=== PATIENT | male | born 1965 | race Hispanic/Latino ===

== ENCOUNTER 2024-01-29 10:13 | Inpatient (IN) | payer BC, OTHER ==
[2024-01-28 13:11] LABS: BASOPHILS % 0.3 % (0.0-1.0); EOSINOPHILS # (AUTO) 0.1 (0.0-0.4); EOSINOPHILS % 2.2 % (0.0-6.0); HEMATOCRIT 43.2 % (38.2-49.6); HEMOGLOBIN 14.2 g/dL (14.0-18.0); LYMPHOCYTES # (AUTO) 1.9 (1.0-3.2); LYMPHOCYTES % 31.7 % (18.0-39.1); MEAN CORPUSCULAR HEMOGLOBIN 32.9 pg (28-32); MEAN CORPUSCULAR HGB CONC 32.9 g/dL (31-35); MONOCYTES # (AUTO) 0.6 (0.2-0.8); MONOCYTES % 9.3 % (4.4-11.3); NEUTROPHILS # (AUTO) 3.3 (2.1-6.9); NEUTROPHILS % 56.3 % (38.7-80.0); PLATELET COUNT 209 x10e3/uL (140-360); RED BLOOD COUNT 4.32 x10e6/uL (4.3-5.7); RED CELL DISTRIBUTION WIDTH 12.3 % (11.7-14.4); WHITE BLOOD COUNT 5.89 x10e3/uL (4.8-10.8)
[2024-01-28 13:28] LABS: ANION GAP 13.1 mmol/L (8-16); CALCIUM 9.9 mg/dL (8.4-10.2); CREATININE, SERUM 0.74 mg/dL (0.72-1.25); POTASSIUM 4.1 mmol/L (3.5-5.1)
[~2024-01-29] VITALS: Ht 170.2 cm; Wt 94.3 kg
[~2024-01-29 10:13] MED LIST: ACETAMINOPHEN 1000 MG/100 ML IV ONE; ALIVE PO; DEXAMETHASONE SOD PHOS INJ 4 MG/ML SDV ONE; FLOMAX0.4 MG PO; GLIPIZIDE5 MG PO; LIDOCAINE HCL 2% LOCAL INJ 5 ML SDV VIAL INJ ONE; METFORMIN HCL500 MG PO; OMEGA; OMEGA 3 1,0001 EACH PO; ONDANSETRON HCL INJ 2MG/ML 2ML 2 MG/ML VIAL ONE; PROPOFOL IV EMULSION 10 MG/ML 20 ML VIAL ONE; ROSUVASTATIN CAL5 MG PO; SEVOFLURANE INHAL SOLN 250 ML PEN BTL ONE; SUCCINYLCHOLINE CHLORIDE 20 MG/ML 10ML VIAL ONE; SUCRALFATE1 GM PO
[2024-01-29] MEDS ORDERED: CALCIUM CARBON500 MG PO (10:26)
[2024-01-29] MEDS: CEFTRIAXONE 1 GM VIAL ONE (10:40)
[2024-01-29] MEDS: SODIUM CHLORIDE 0.9% 1000ML 1,000 ML ONE (10:40)
[2024-01-29] MEDS: GENTAMICIN 80MG/NS 100 ML 200 ML IV ONE (10:41)
[2024-01-29] MEDS ORDERED: IOPAMIDOL 610MG/1ML 300 MG/ML VIAL IV ONE (11:44)
[2024-01-29] MEDS: FENTANYL CITRATE/PF 100MCG/2 ML INJ ONE (13:40)
[2024-01-29] MEDS: ONDANSETRON HCL INJ 2MG/ML 2ML 2 MG/ML VIAL ONE (14:01)
[2024-01-29] MEDS ORDERED: ONDANSETRON HCL INJ 2MG/ML 2ML 2 MG/ML VIAL IV PRN (14:15)
[2024-01-29] MEDS ORDERED: DIPHENHYDRAMINE HCL 25 MG CAP PO PRN (14:15)
[2024-01-29] MEDS: PHENAZOPYRIDINE HCL 100 MG TAB PO PRN (14:17)
[2024-01-29] MEDS: ACETAMINOPHEN/CODEINE 300MG - 30MG TAB PO PRN (14:17)
[2024-01-29] MEDS: ACETAMINOPHEN/CODEINE 300MG - 30MG TAB ONE (14:17)
[2024-01-29 14:31] LABS: BASOPHILS % 0.2 % (0.0-1.0); EOSINOPHILS # (AUTO) 0.1 (0.0-0.4); EOSINOPHILS % 0.5 % (0.0-6.0); HEMATOCRIT 37.8 % (38.2-49.6); HEMOGLOBIN 12.2 g/dL (14.0-18.0); LYMPHOCYTES # (AUTO) 1.3 (1.0-3.2); LYMPHOCYTES % 13.6 % (18.0-39.1); MEAN CORPUSCULAR HEMOGLOBIN 32.8 pg (28-32); MEAN CORPUSCULAR HGB CONC 32.3 g/dL (31-35); MEAN CORPUSCULAR VOLUME 101.6 fL (81-99); MONOCYTES # (AUTO) 0.2 (0.2-0.8); MONOCYTES % 2.5 % (4.4-11.3); NEUTROPHILS # (AUTO) 7.8 (2.1-6.9); PLATELET COUNT 166 x10e3/uL (140-360); RED BLOOD COUNT 3.72 x10e6/uL (4.3-5.7); RED CELL DISTRIBUTION WIDTH 12.6 % (11.7-14.4); WHITE BLOOD COUNT 9.43 x10e3/uL (4.8-10.8)
[2024-01-29 14:40] VITALS: BP 132/86; PULSE 75; RESP 17; TEMP 97.6; O2SAT 98
[2024-01-29 15:12] LABS: ANION GAP 12.3 mmol/L (8-16); CALCIUM 7.5 mg/dL (8.4-10.2); CREATININE, SERUM 0.62 mg/dL (0.72-1.25); POTASSIUM 4.3 mmol/L (3.5-5.1)
[2024-01-29] MEDS: SODIUM CHLORIDE 0.9% 1000ML 1,000 ML IV SCH (15:35)
[2024-01-29 15:46] VITALS: BP 132/86; PULSE 75; RESP 17; TEMP 97.6; O2SAT 98
[2024-01-29] MEDS ORDERED: ACETAMINOPHEN 1000 MG/100 ML IV PRN (16:00)
[2024-01-29] MEDS ORDERED: FENTANYL CITRATE/PF 100MCG/2 ML INJ ONE (18:16)
[2024-01-29] MEDS ORDERED: MIDAZOLAM HCL 2 MG/2 ML VIAL ONE (18:16)
[2024-01-29] MEDS: SENNA-S TABLET PO SCH (19:09)
[2024-01-29 20:00] VITALS: BP 126/89; PULSE 72; RESP 18; TEMP 97.9; O2SAT 98
[2024-01-29 20:14] VITALS: BP 126/89; PULSE 72; RESP 18; TEMP 97.9; O2SAT 98
[2024-01-30] VITALS (8 sets, daily range): BP systolic 118–133; BP diastolic 80–92; PULSE 64–75; RESP 16–18; TEMP 97.7–98.2; O2SAT 97–100
[2024-01-30 05:50] LABS: BASOPHILS % 0.1 % (0.0-1.0); EOSINOPHILS % 0.3 % (0.0-6.0); HEMATOCRIT 39.1 % (38.2-49.6); HEMOGLOBIN 12.7 g/dL (14.0-18.0); LYMPHOCYTES # (AUTO) 1.6 (1.0-3.2); LYMPHOCYTES % 13.7 % (18.0-39.1); MEAN CORPUSCULAR HEMOGLOBIN 33.1 pg (28-32); MEAN CORPUSCULAR HGB CONC 32.5 g/dL (31-35); MEAN CORPUSCULAR VOLUME 101.8 fL (81-99); MONOCYTES # (AUTO) 0.8 (0.2-0.8); MONOCYTES % 7.2 % (4.4-11.3); NEUTROPHILS # (AUTO) 9.1 (2.1-6.9); NEUTROPHILS % 78.4 % (38.7-80.0); PLATELET COUNT 184 x10e3/uL (140-360); RED BLOOD COUNT 3.84 x10e6/uL (4.3-5.7); RED CELL DISTRIBUTION WIDTH 12.5 % (11.7-14.4); WHITE BLOOD COUNT 11.65 x10e3/uL (4.8-10.8)
[2024-01-30 06:13] LABS: ANION GAP 12.8 mmol/L (8-16); CALCIUM 8.7 mg/dL (8.4-10.2); CREATININE, SERUM 0.65 mg/dL (0.72-1.25); POTASSIUM 3.8 mmol/L (3.5-5.1)
[2024-01-30] MEDS ORDERED: ACETAMINOPHEN 325 MG TAB PO PRN (08:30)
[2024-01-30] MEDS ORDERED: DEXTROSE 50% SYRINGE 50 ML IV PRN (08:30)
[2024-01-30] MEDS ORDERED: BISACODYL 10 MG SUPP PR PRN (08:30)
[2024-01-30] MEDS: MAGNESIUM SULFATE 2GM/50ML 50 ML IV ONE (08:57)
[2024-01-30] MEDS: SENNOSIDES 8.6 MG TAB PO SCH (08:57)
[2024-01-30] MEDS: DOCUSATE SODIUM 100 MG CAP PO SCH (08:57)
[2024-01-30] MEDS: INSULIN LISPRO 100 UNIT/1 ML 3ML VIAL SQ SCH (11:30)
[2024-01-31] VITALS (7 sets, daily range): BP systolic 124–144; BP diastolic 77–99; PULSE 16–89; RESP 16–18; TEMP 97.9–98.2; O2SAT 96–99
[2024-01-31 05:43] LABS: BASOPHILS % 0.4 % (0.0-1.0); EOSINOPHILS # (AUTO) 0.1 (0.0-0.4); EOSINOPHILS % 1.4 % (0.0-6.0); HEMATOCRIT 38.2 % (38.2-49.6); HEMOGLOBIN 12.5 g/dL (14.0-18.0); LYMPHOCYTES # (AUTO) 1.9 (1.0-3.2); LYMPHOCYTES % 24.6 % (18.0-39.1); MEAN CORPUSCULAR HEMOGLOBIN 33.1 pg (28-32); MEAN CORPUSCULAR HGB CONC 32.7 g/dL (31-35); MEAN CORPUSCULAR VOLUME 101.1 fL (81-99); MONOCYTES # (AUTO) 0.6 (0.2-0.8); MONOCYTES % 8.2 % (4.4-11.3); NEUTROPHILS % 65.3 % (38.7-80.0); PLATELET COUNT 170 x10e3/uL (140-360); RED BLOOD COUNT 3.78 x10e6/uL (4.3-5.7); RED CELL DISTRIBUTION WIDTH 12.8 % (11.7-14.4); WHITE BLOOD COUNT 7.72 x10e3/uL (4.8-10.8)
[2024-01-31 06:04] LABS: ANION GAP 12.9 mmol/L (8-16); CALCIUM 8.8 mg/dL (8.4-10.2); CREATININE, SERUM 0.65 mg/dL (0.72-1.25); POTASSIUM 3.9 mmol/L (3.5-5.1)
[2024-01-31 06:44] LABS: MAGNESIUM 1.8 MG/DL (1.3-2.1)
[2024-01-31] MEDS: GLIPIZIDE 5 MG TAB PO SCH (16:54)
[2024-01-31] MEDS: METFORMIN HCL 500 MG TAB PO SCH (16:54)
[2024-01-31 17:11] LABS: FERRITIN 179.47 ng/mL (21.81-274.66)
[2024-01-31] MEDS ORDERED: POLYETHYLENE GLYCOL 3350 17 GM PACK PO PRN (17:15)
[2024-02-01] VITALS: BP 121/93; PULSE 74; RESP 17; TEMP 97.9; O2SAT 97
[2024-02-01 04:00] VITALS: BP 125/86; PULSE 63; RESP 17; TEMP 97.8; O2SAT 98
[2024-02-01 06:23] LABS: BASOPHILS % 0.4 % (0.0-1.0); EOSINOPHILS # (AUTO) 0.2 (0.0-0.4); EOSINOPHILS % 2.2 % (0.0-6.0); HEMATOCRIT 38.4 % (38.2-49.6); HEMOGLOBIN 12.7 g/dL (14.0-18.0); LYMPHOCYTES % 28.4 % (18.0-39.1); MEAN CORPUSCULAR HEMOGLOBIN 33.1 pg (28-32); MEAN CORPUSCULAR HGB CONC 33.1 g/dL (31-35); MONOCYTES # (AUTO) 0.6 (0.2-0.8); MONOCYTES % 9.3 % (4.4-11.3); NEUTROPHILS # (AUTO) 4.1 (2.1-6.9); NEUTROPHILS % 59.4 % (38.7-80.0); PLATELET COUNT 170 x10e3/uL (140-360); RED BLOOD COUNT 3.84 x10e6/uL (4.3-5.7); RED CELL DISTRIBUTION WIDTH 12.6 % (11.7-14.4); WHITE BLOOD COUNT 6.91 x10e3/uL (4.8-10.8)
[2024-02-01 06:49] LABS: ANION GAP 12.8 mmol/L (8-16); CALCIUM 9.4 mg/dL (8.4-10.2); CREATININE, SERUM 0.68 mg/dL (0.72-1.25); POTASSIUM 3.8 mmol/L (3.5-5.1)
[2024-02-01 08:03] VITALS: BP 127/92; PULSE 70; RESP 20; TEMP 98.1; O2SAT 98
[2024-02-01] MEDS ORDERED: LEVOFLOXACIN500 MG PO (10:59)
[2024-02-01 11:56] VITALS: BP 142/93; PULSE 63; RESP 18; TEMP 97.8; O2SAT 100
== END 2024-02-01 12:10 | disposition home or self-care (01) | DRG 713 ==
LOC: OR 10:13 → PACU V 14:04 → MED/SURG3 14:40
PROVIDERS: ADMIT Internal Medicine; ATTEND Internal Medicine
PROC: 0T7D8ZZ Dilation of Urethra, Via Natural or Artificial Opening Endoscopic (ICD-10-PCS; 2024-01-29)
PROC: 0T9B70Z Drainage of Bladder with Drainage Device, Via Natural or Artificial Opening (ICD-10-PCS; 2024-01-29)
PROC: BT161ZZ Fluoroscopy of Right Ureter using Low Osmolar Contrast (ICD-10-PCS; 2024-01-29)
PROC: BT171ZZ Fluoroscopy of Left Ureter using Low Osmolar Contrast (ICD-10-PCS; 2024-01-29)
PROC: BT101ZZ Fluoroscopy of Bladder using Low Osmolar Contrast (ICD-10-PCS; 2024-01-29)
PROC: 0VB07ZZ Excision of Prostate, Via Natural or Artificial Opening (ICD-10-PCS; principal; 2024-01-29 11:59)
DX: C61 Malignant neoplasm of prostate (principal); N13.8 Other obstructive and reflux uropathy; E11.9 Type 2 diabetes mellitus without complications; N40.1 Benign prostatic hyperplasia with lower urinary tract symptoms; I10 Essential (primary) hypertension; E78.5 Hyperlipidemia, unspecified; N35.912 Unspecified bulbous urethral stricture, male; N41.1 Chronic prostatitis; E66.9 Obesity, unspecified; Z68.32 Body mass index [BMI] 32.0-32.9, adult; E78.2 Mixed hyperlipidemia; R31.29 Other microscopic hematuria; D53.9 Nutritional anemia, unspecified; E83.42 Hypomagnesemia; Z79.84 Long term (current) use of oral hypoglycemic drugs
CPT/HCPCS: 36415; 74420; 80048; 82607; 82728; 82948; 83036; 83540; 83735; 84466; 85025; 88305; 93005; 96372; C1758; J0330; J0696; J1100; J1580; J2003; J2250; J2405; J3475; J7030

== ENCOUNTER → 2024-09-25 | Day surgery (SDC) | payer OTHER ==
[~2024-09-25] MED LIST changes: -ACETAMINOPHEN 1000 MG/100 ML IV ONE; +ACETAMINOPHEN/CODEINE 300MG - 30MG TAB ONE; +CALCIUM CARBON500 MG PO; +CEFTRIAXONE 1 GM VIAL ONE; +FARXIGA10 MG PO; +FENTANYL CITRATE/PF 100MCG/2 ML INJ ONE; +JANUVIA100 MG PO; +LEVOFLOXACIN500 MG PO; +LIDOCAINE 2% /EPINEPHRINE 20 ML SDV INJ ONE; +MIDAZOLAM HCL 2 MG/2 ML VIAL ONE; -SEVOFLURANE INHAL SOLN 250 ML PEN BTL ONE; -SUCCINYLCHOLINE CHLORIDE 20 MG/ML 10ML VIAL ONE
[2024-09-25 12:38] LABS: BASOPHILS % 0.5 % (0.0-1.0); EOSINOPHILS # (AUTO) 0.1 (0.0-0.4); EOSINOPHILS % 1.5 % (0.0-6.0); HEMATOCRIT 40.4 % (38.2-49.6); HEMOGLOBIN 13.6 g/dL (14.0-18.0); LYMPHOCYTES # (AUTO) 1.8 (1.0-3.2); LYMPHOCYTES % 29.3 % (18.0-39.1); MEAN CORPUSCULAR HEMOGLOBIN 33.1 pg (28-32); MEAN CORPUSCULAR HGB CONC 33.7 g/dL (31-35); MEAN CORPUSCULAR VOLUME 98.3 fL (81-99); MONOCYTES # (AUTO) 0.5 (0.2-0.8); MONOCYTES % 7.4 % (4.4-11.3); NEUTROPHILS # (AUTO) 3.7 (2.1-6.9); NEUTROPHILS % 61.1 % (38.7-80.0); PLATELET COUNT 184 x10e3/uL (140-360); RED BLOOD COUNT 4.11 x10e6/uL (4.3-5.7); RED CELL DISTRIBUTION WIDTH 12.8 % (11.7-14.4); WHITE BLOOD COUNT 6.11 x10e3/uL (4.8-10.8)
[2024-09-25 12:59] LABS: CREATININE, SERUM 0.67 mg/dL (0.72-1.25)
[2024-09-25] MEDS: SODIUM CHLORIDE 0.9% 1000ML 1,000 ML ONE (13:17)
[2024-09-25] MEDS: GENTAMICIN 80MG/NS 100 ML 100 ML IV ONE (13:21)
[2024-09-25] MEDS: FENTANYL CITRATE/PF 100MCG/2 ML INJ ONE (14:30)
[2024-09-25] MEDS: PHENAZOPYRIDINE HCL 100 MG TAB ONE (14:54)
[2024-09-25 15:35] VITALS: BP 130/81; PULSE 60; RESP 18; O2SAT 97
[2024-09-25] MEDS: ACETAMINOPHEN/CODEINE 300MG - 30MG TAB PO ONE (15:35)
== END | disposition home or self-care (01) ==
LOC: OR 11:53
PROVIDERS: ATTEND Urology
DX: N32.0 Bladder-neck obstruction (principal); N40.3 Nodular prostate with lower urinary tract symptoms; R35.1 Nocturia; R39.14 Feeling of incomplete bladder emptying; N32.89 Other specified disorders of bladder; C61 Malignant neoplasm of prostate; N35.812 Other bulbous urethral stricture, male; N41.1 Chronic prostatitis; K42.9 Umbilical hernia without obstruction or gangrene; E11.9 Type 2 diabetes mellitus without complications; E78.00 Pure hypercholesterolemia, unspecified; E66.9 Obesity, unspecified; Z79.84 Long term (current) use of oral hypoglycemic drugs; Z68.37 Body mass index [BMI] 37.0-37.9, adult
CPT/HCPCS: 36415; 52005; 52450; 74420; 80048; 82948; 85025; 93005; C1758; J0696; J1100; J1580; J2003; J2250; J2405; J2704; J3010; J7030; J2004

== ENCOUNTER 2024-09-27 13:11 | Emergency (ER) | payer BC, OTHER ==
[~2024-09-27] VITALS: Ht 170.2 cm; Wt 93.9 kg
[~2024-09-27 13:11] MED LIST changes: -ACETAMINOPHEN/CODEINE 300MG - 30MG TAB ONE; -CEFTRIAXONE 1 GM VIAL ONE; -DEXAMETHASONE SOD PHOS INJ 4 MG/ML SDV ONE; -FENTANYL CITRATE/PF 100MCG/2 ML INJ ONE; -LIDOCAINE 2% /EPINEPHRINE 20 ML SDV INJ ONE; -LIDOCAINE HCL 2% LOCAL INJ 5 ML SDV VIAL INJ ONE; -MIDAZOLAM HCL 2 MG/2 ML VIAL ONE; -ONDANSETRON HCL INJ 2MG/ML 2ML 2 MG/ML VIAL ONE; -PROPOFOL IV EMULSION 10 MG/ML 20 ML VIAL ONE
[2024-09-27 13:24] VITALS: PULSE 98; RESP 16; TEMP 98; O2SAT 98
== END 2024-09-27 14:12 | disposition home or self-care (01) ==
LOC: ER 13:25
DX: Z46.6 Encounter for fitting and adjustment of urinary device (principal); E11.9 Type 2 diabetes mellitus without complications; E78.5 Hyperlipidemia, unspecified
CPT/HCPCS: 99282